=== PATIENT | male | born 2000 | race Caucasian/White ===

== ENCOUNTER 2025-05-03 11:51 | Emergency (ER) | payer OTHER ==
[2025-05-03] MEDS ORDERED: Lidocaine 1% (PF) 30 ML VIAL ONE (13:07)
[2025-05-03] MEDS ORDERED: Boostrix 0.5 ML (Tdap) VIAL (>/=7 yrs of age) ONE (13:35)
== END 2025-05-03 13:42 | disposition home or self-care (01) ==
LOC: ERS 11:51
DX: S81.812A Laceration without foreign body, left lower leg, initial encounter (principal); Z23 Encounter for immunization; W20.8XXA Other cause of strike by thrown, projected or falling object, initial encounter
CPT/HCPCS: 12002; 90471; 90715; J2003